=== PATIENT | female | born 1950 | race Caucasian/White ===

== ENCOUNTER → 2017-01-29 | Day surgery (SDC) | payer OTHER ==
[~2017-01-29] VITALS: Ht 170.2 cm; Wt 74.5 kg
== END | disposition home or self-care (01) ==
LOC: FAS 10:59
DX: Z12.11 Encounter for screening for malignant neoplasm of colon (principal); E78.5 Hyperlipidemia, unspecified; F41.9 Anxiety disorder, unspecified; G40.909 Epilepsy, unspecified, not intractable, without status epilepticus; Z91.040 Latex allergy status; Z88.0 Allergy status to penicillin; Z88.8 Allergy status to other drugs, medicaments and biological substances; Z90.710 Acquired absence of both cervix and uterus; Z80.0 Family history of malignant neoplasm of digestive organs; Z79.890 Hormone replacement therapy; Z79.899 Other long term (current) drug therapy; Z98.890 Other specified postprocedural states
CPT/HCPCS: J2704

== ENCOUNTER → 2022-01-22 | Day surgery (SDC) | payer OTHER ==
[~2022-01-22] VITALS: Ht 170.2 cm; Wt 71.3 kg
[~2022-01-22] MED LIST: ESCITALOPRAM OX20 MG PO; ESTRADIOL1 MG PO; MELATONIN5 M2 PO; PHENOBARBITAL64.8 MG PO; ROSUVASTATIN CA10 MG PO; VITAMIN D325 MC1 PO
[2022-01-22 08:19] LABS: HCT 38.2 % (37.0-47.0); HGB 12.8 g/dl (12.5-16.0); MCHC 33.5 g/dL (32.0-36.0); MCV 92.5 fL (78.0-100.0); MPV 9.9 fL (6.0-9.5); RBC 4.13 M/uL (4.20-5.40); RDW 12.8 % (11.5-14.0); WBC 4.4 K/uL (4.0-10.5)
[2022-01-22 08:36] LABS: ALBUMIN 3.6 g/dL (3.4-5.0); BILIRUBIN - TOTAL 0.2 mg/dL (0.2-1.0); BUN/CREAT RATIO (CALC) 7.9 RATIO; CREATININE 0.63 mg/dL (0.51-0.95); POTASSIUM 3.5 mmol/L (3.5-5.1); TOTAL PROTEIN 7.6 g/dL (6.4-8.2)
== END | disposition home or self-care (01) ==
LOC: FAS 07:24
PROVIDERS: Surgery
DX: Z12.11 Encounter for screening for malignant neoplasm of colon (principal); Z80.0 Family history of malignant neoplasm of digestive organs; E78.5 Hyperlipidemia, unspecified; F41.9 Anxiety disorder, unspecified; Z79.899 Other long term (current) drug therapy; Z88.0 Allergy status to penicillin; Z91.040 Latex allergy status
CPT/HCPCS: 36415; 80053; J1610; J2250; J2704; J7120